=== PATIENT | male | born 1970 | race Caucasian/White ===

== ENCOUNTER 2019-06-23 14:56 | Emergency (ER) | payer SELFPAY ==
[2019-06-23 15:17] VITALS: BP 138/80
--- NOTE | 2019-06-23 15:32 | UC ---
Skin Complaint HPI - HPI Summary HPI Summary: 49 yo with 4 week history of enlarging cyst on the right posterior neck. No drainage, is increasingly tender, without associated lymphadenopathy. No fever, no headaches. - History of Current Complaint Chief Complaint: UCSkin Time Seen by Provider: 06/23/19 15:15 Stated Complaint: SOFT TISSUE COMPLAINT Hx Obtained From: Patient Onset/Duration: Gradual Onset, Lasting Weeks Timing: Constant Onset Severity: Mild Current Severity: Moderate Pain Intensity: 5 Location: Discrete Aggravating Factor(s): Touch Alleviating Factor(s): Nothing Associated Signs & Symptoms: Positive: Negative - Allergy/Home Medications Allergies/Adverse Reactions: Allergies Allergy/AdvReac Type Severity Reaction Status Date / Time Penicillins Allergy Unknown Verified 06/23/19 15:17 Reaction Details Home Medications: Home Medications carBAMazepine TAB(*) [Tegretol TAB(*)] 400 mg PO BID 12/21/12 [History Confirmed 06/23/19] cephALEXin [Keflex] 500 mg PO TID #21 capsule 06/23/19 [Rx] PMH/Surg Hx/FS Hx/Imm Hx Previously Healthy: Yes Neurological History: Seizures - last was 10 years ago - Surgical History Surgical History: Yes Surgery Procedure, Year, and Place: 1999 Severe head trauma, 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 - Family History Known Family History: Positive: Hypertension, Other - mother of sarcoidosis. - Social History Occupation: Unemployed Alcohol Use: None Substance Use Type: None Smoking Status (MU): Light Every Day Tobacco Smoker Household Exposure Type: Cigars Review of Systems All Other Systems Reviewed And Are Negative: Yes Constitutional: Positive: Negative Skin: Positive: Other - enlarging cyst right posterior neck Eyes: Positive: Negative ENT: Positive: Negative Respiratory: Positive: Negative Cardiovascular: Positive: Negative Gastrointestinal: Positive: Negative Genitourinary: Positive: Negative Motor: Positive: Negative Neurovascular: Positive: Negative Musculoskeletal: Positive: Negative Neurological/Mental Status: Positive: Negative Psychological: Positive: Negative Is Patient Immunocompromised?: No Physical Exam Triage Information Reviewed: Yes Appearance: Well-Appearing, No Pain Distress Vital Signs: Initial Vital Signs Temp 98.8 F 06/23/19 15:10 Pulse 81 06/23/19 15:10 Resp 20 06/23/19 15:10 BP 138/80 06/23/19 15:10 Pulse Ox 98 06/23/19 15:10 ENT: Positive: Normal ENT inspection Respiratory Exam: Normal Cardiovascular Exam: Normal Skin Exam: Other - right posterior neck with 3.5 x 2.5 cm indurated nodule with overlying erythema and mild warmth. No pointing. No enlargment of occipital or cervical nodes. Course/Dx - Course Course Of Treatment: cephalexin given for treatment. His cellulitis is mild and likely will resolve with treatment, anticipate that he will not necessarily need I+D of forming abscess. Continue hot compresses, referred to Dr. Reyes at [facility] for excision. - Differential Diagnoses - Skin Complaint Differential Diagnoses: Abscess, Cellulitis, Other - sebaceous cyst - Diagnoses Provider Diagnosis: Cellulitis, neck, Sebaceous cyst Discharge ED - Sign-Out/Discharge Documenting (check all that apply): Patient Departure All imaging exams completed and their final reports reviewed: No Studies - Discharge Plan Condition: Stable Disposition: HOME Prescriptions: cephALEXin [Keflex] 500 mg PO TID #21 capsule Patient Education Materials: Cellulitis (ED) Referrals: Maged Bell MD [Primary Care Provider] - Chevy Reyes MD [Medical Doctor] - Additional Instructions: Warm compress the cyst on your neck twice daily for 5 minutes. Take cephalexin for treatment of infection. As discussed, the antibiotic is likely to settle the infection, and then you can elect to have the cyst removed. You have a referral to [facility] for this. - Billing Disposition and Condition Condition: STABLE Disposition: Home
== END 2019-06-23 16:00 | disposition home or self-care (01) ==
LOC: UCEAST 14:56
DX: L03.221 Cellulitis of neck (principal); L72.3 Sebaceous cyst; Z88.0 Allergy status to penicillin; F17.200 Nicotine dependence, unspecified, uncomplicated
CPT/HCPCS: 99202; G0463